=== PATIENT | male | born 2005 | race Caucasian/White ===

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

== ENCOUNTER 2024-02-10 10:22 | Emergency (ER) | payer SELFPAY ==
[~2024-02-10] VITALS: Ht 175.3 cm; Wt 77.0 kg
[2024-02-10] VITALS (8 sets, daily range): BP systolic 117–160; BP diastolic 58–82
[~2024-02-10 10:22] MED LIST changes: +LIDOCAINE HCL VIS2 % PO
[2024-02-10] MEDS ORDERED: Pantoprazole Sodium 40 MG VIAL (Protonix) IV STA (10:39)
[2024-02-10] MEDS ORDERED: PROMETHAZINE HCL 25 MG/ML AMP IV STA (10:39)
[2024-02-10] MEDS ORDERED: SODIUM CHLORIDE 0.9% 1,000 ML IV STA (10:39)
[2024-02-10] MEDS ORDERED: ONDANSETRON HCl 4 MG/2 ML SDV IV STA (10:39)
[2024-02-10 11:21] LABS: BASO% 0.2 % (0-3); EOS% 0.5 % (0-8); HEMATOCRIT 44.2 % (39.0-50.0); HEMOGLOBIN 14.5 g/dl (14.0-18.0); IMMATURE GRANULOCYTES 0.3 % (0.0-5.0); LYMPH% 8.9 % (15-41); MEAN CELL VOLUME 90.4 fL CALC (80.0-100.0); MEAN CORPUSCULAR HGB 29.7 pG CALC (26.0-32.0); MEAN CORPUSCULAR HGB CONC 32.8 g/dL CAL (32.0-36.0); MONO% 4.9 % (2-13); NEUT# 12.22 thou/uL (1.82-7.42); NEUT% 85.2 % (42-76); RED BLOOD COUNT 4.89 mill/uL (4.70-6.10); RED CELL DISTRI WIDTH 12.1 % (11.5-15.5)
[2024-02-10 11:27] LABS: ALBUMIN 4.8 g/dL (3.2-5.0); CREATININE 0.8 mg/dL (0.7-1.3); POTASSIUM 3.9 mmol/l (3.5-5.1); TOTAL PROTEIN 7.2 g/dL (6.3-8.2)
[2024-02-10 11:28] LABS: BILIRUBIN, TOTAL 0.7 mg/dL (0.2-1.3)
[2024-02-10] MEDS ORDERED: HALOPERIDOL LACTATE 5 MG/ML SDV IV ONE (11:45)
[2024-02-10] MEDS ORDERED: FAMOTIDINE 10MG/ML 2ML SDV IV ONE (11:45)
[2024-02-10] MEDS ORDERED: SODIUM CHLORIDE 0.9% 1,000 ML IV ONE ×2 (11:45→13:25)
[2024-02-10] MEDS ORDERED: Pantoprazole Sodium 40 MG VIAL (Protonix) IV ONE (11:45)
[2024-02-10] MEDS ORDERED: MORPHINE SULFATE 4 MG/ML VIAL IV ONE (13:25)
[2024-02-10] MEDS ORDERED: PROTONIX40 M2 PO ×2 (15:32→15:34)
[2024-02-10] MEDS ORDERED: HALOPERIDOL2 MG PO (15:32)
== END 2024-02-10 15:46 | disposition home or self-care (01) | DRG 392 ==
LOC: ED 10:22
PROVIDERS: Nurse Practitioner
DX: K29.70 Gastritis, unspecified, without bleeding (principal); R11.2 Nausea with vomiting, unspecified; F12.90 Cannabis use, unspecified, uncomplicated; K21.9 Gastro-esophageal reflux disease without esophagitis; Z87.11 Personal history of peptic ulcer disease
CPT/HCPCS: J2470; Q9967

== ENCOUNTER 2024-02-14 22:47 | Emergency (ER) | payer SELFPAY ==
[~2024-02-14] VITALS: Ht 175.3 cm; Wt 77.0 kg
[~2024-02-14 22:47] MED LIST changes: +HALOPERIDOL2 MG PO; +PROTONIX40 M2 PO
[2024-02-14] MEDS ORDERED: HYDROmorphone HCL 2 MG/AMP IV STA (23:07)
[2024-02-14] MEDS ORDERED: Pantoprazole Sodium 40 MG VIAL (Protonix) IV STA (23:07)
[2024-02-14] MEDS ORDERED: SODIUM CHLORIDE 0.9% 1,000 ML IV STA (23:07)
[2024-02-14] MEDS ORDERED: PROMETHAZINE HCL 25 MG/ML AMP IV ONE (23:10)
[2024-02-14] MEDS ORDERED: ALUM & MAG HYDROX-SIMETHICONE 30 ML PO ONE (23:10)
[2024-02-14] MEDS ORDERED: LIDOCAINE VISCOUS 2% 15 ML UDC PO ONE (23:10)
[2024-02-14] MEDS ORDERED: DiphenhydrAMINE HCL 50 MG/ML SDV IV ONE (23:10)
[2024-02-14 23:22] LABS: BASO% 0.3 % (0-3); EOS% 0.1 % (0-8); HEMATOCRIT 46.4 % (39.0-50.0); HEMOGLOBIN 15.5 g/dl (14.0-18.0); IMMATURE GRANULOCYTES 0.3 % (0.0-5.0); LYMPH% 11.7 % (15-41); MEAN CELL VOLUME 88.5 fL CALC (80.0-100.0); MEAN CORPUSCULAR HGB 29.6 pG CALC (26.0-32.0); MEAN CORPUSCULAR HGB CONC 33.4 g/dL CAL (32.0-36.0); MONO% 5.1 % (2-13); NEUT# 9.86 thou/uL (1.82-7.42); NEUT% 82.5 % (42-76); RED BLOOD COUNT 5.24 mill/uL (4.70-6.10); RED CELL DISTRI WIDTH 12.3 % (11.5-15.5)
[2024-02-14 23:47] LABS: ALBUMIN 5.3 g/dL (3.2-5.0); CREATININE 0.9 mg/dL (0.7-1.3); POTASSIUM 3.8 mmol/l (3.5-5.1); TOTAL PROTEIN 8.3 g/dL (6.3-8.2)
[2024-02-14 23:56] LABS: BILIRUBIN, TOTAL 2.1 mg/dL (0.2-1.3)
[2024-02-15] MEDS ORDERED: DICYCLOMINE HYD10 MG PO (00:59)
[2024-02-15 01:12] VITALS: BP 135/83
== END 2024-02-15 01:25 | disposition home or self-care (01) | DRG 392 ==
LOC: ED 22:47
PROVIDERS: Family Medicine
DX: K29.70 Gastritis, unspecified, without bleeding (principal); K21.9 Gastro-esophageal reflux disease without esophagitis; T50.906A Underdosing of unspecified drugs, medicaments and biological substances, initial encounter; Z91.128 Patient's intentional underdosing of medication regimen for other reason; Z87.11 Personal history of peptic ulcer disease
CPT/HCPCS: J2470